=== PATIENT | male | born 1985 | race Caucasian/White ===

== ENCOUNTER 2017-07-30 19:08 | Emergency (ER) | payer OTHER ==
[~2017-07-30] VITALS: Ht 165.1 cm; Wt 136.1 kg
[2017-07-30 19:19] VITALS: BP 140/85
--- NOTE | 2017-07-30 20:07 | PHYS DOC ---
Past History Past Medical History: Hypertension Past Surgical History: No Surgical History Alcohol Use: None Drug Use: None Adult General Chief Complaint Chief Complaint: FOOT INJURY PAIN HPI HPI Patient is a 31 year old M who presents with a toe injury. Robbin states that his feet became tangled in an extension cord just prior to arrival. His right fifth toe was deviated laterally just after the fall. He has mild dull pain that is worse with movement and palpation and improved with positioning and rest. Review of Systems Review of Systems Constitutional: Denies fever or chills [] Eyes: Denies change in visual acuity, redness, or eye pain [] HENT: Denies nasal congestion or sore throat [] Respiratory: Denies cough or shortness of breath [] Cardiovascular: No additional information not addressed in HPI [] GI: Denies abdominal pain, nausea, vomiting, bloody stools or diarrhea [] : Denies dysuria or hematuria [] Musculoskeletal: Negative except history of present illness Integument: Denies rash or skin lesions [] Neurologic: Denies headache, focal weakness or sensory changes [] Endocrine: Denies polyuria or polydipsia [] Family History Family History Noncontributory Current Medications Current Medications Medications reviewed Allergies Allergies Allergies Coded Allergies Type Severity Reaction Last Updated Verified Penicillins Allergy Unknown 07/30/17 Yes Physical Exam Physical Exam Constitutional: Well developed, well nourished, no acute distress, non-toxic appearance. [] HENT: Normocephalic, atraumatic Eyes: PERRLA, EOMI, conjunctiva normal, no discharge. [] Neck: Normal range of motion, no tenderness, supple, no stridor. [] Cardiovascular:Heart rate regular rhythm, no murmur [] Lungs & Thorax: Bilateral breath sounds clear to auscultation [] Abdomen: Bowel sounds normal, soft, no tenderness, no masses, no pulsatile masses. [] Extremities: no cyanosis, no clubbing, ROM intact, no edema. [] Right fifth toe laterally deviated with proximal pain to palpation. Neurologic: Alert and oriented X 3, normal motor function, normal sensory function, no focal deficits noted. [] Psychologic: Affect normal, judgement normal, mood normal. [] Current Patient Data Vital Signs Vital Signs Date Time Temp Pulse Resp B/P (MAP) Pulse Ox O2 Delivery O2 Flow Rate FiO2 07/30/17 19:19 97.6 91 20 99 Room Air Radiology/Procedures Radiology/Procedures Right toe x-ray Impressions: Right fifth toe fracture with mild deviation Course & Med Decision Making Course & Med Decision Making Pertinent Labs and Imaging studies reviewed. (See chart for details) Francisco's toe was mecca taped and he was placed in a hard sole postop shoe. Dragon Disclaimer Dragon Disclaimer This chart was dictated in whole or in part using Voice Recognition software in a busy, high-work load, and often noisy Emergency Department environment. It may contain unintended and wholly unrecognized errors or omissions. Departure Departure: Impression: Primary Impression: Fracture of fifth toe, right, closed Disposition: HOME, SELF-CARE Condition: STABLE Referrals: [facility] (PCP) Patient Instructions: Toe Fracture Additional Instructions: Jim was seen in the emergency department for toe pain. No emergency medical condition was found on history or physical exam. He did have an x-ray which showed a fracture of his right fifth toe. His toes were mecca taped and he was placed in a hard soled shoe, postop shoe. He is advised follow up with podiatry in the next 5-7 days. Problem Qualifiers Primary Impression: Fracture of fifth toe, right, closed Encounter type: initial encounter Qualified Codes: S92.501A - Displaced unspecified fracture of right lesser toe(s), initial encounter for closed fracture JANICE NOGUERA MD Jul 30, 2017 20:07
--- NOTE | 2017-07-31 08:45 | RAD ---
Three-view right foot radiographs to include 3 view radiographs of the right toes. Clinical history: Injury to the right foot and right fourth and fifth toes. AP, lateral and oblique digital radiographs of the right foot were obtained. AP, lateral and oblique digital radiographs of the right toes were obtained. A bone screw is seen within the proximal metaphysis of the right fifth metatarsal extending to the distal diaphysis. A healed fracture of the proximal diaphysis of the right fifth toe is noted. An acute transverse fracture of the proximal metaphysis/diaphysis of the proximal phalanx of the right fifth toe is seen. Very mild medial displacement and lateral angulation of the distal fracture fragment is noted. No additional fracture is seen. Mild degenerative changes are seen involving the interphalangeal joint of the right first toe. Mild to moderate degenerative changes are seen involving the first MTP joint. Mild to moderate degenerative changes are seen involving the right ankle and tarsal joints. Impression: Acute fracture involving the proximal phalanx of the right fifth toe as outlined above.
== END 2017-07-30 20:15 | disposition home or self-care (01) ==
LOC: ER 19:08
DX: S92.511A Displaced fracture of proximal phalanx of right lesser toe(s), initial encounter for closed fracture (principal); I10 Essential (primary) hypertension; Z88.0 Allergy status to penicillin; W19.XXXA Unspecified fall, initial encounter; Y93.89 Activity, other specified; Y99.8 Other external cause status; Y92.89 Other specified places as the place of occurrence of the external cause
CPT/HCPCS: 73630; 73660; 99284

== ENCOUNTER 2019-08-07 12:04 | Emergency (ER) | payer OTHER ==
[~2019-08-07] VITALS: Ht 195.6 cm; Wt 154.2 kg
--- NOTE | 2019-08-07 12:20 | PHYS DOC ---
Past History Past Medical History: Hypertension Past Surgical History: Other Additional Past Surgical Histo: fifth metatarsal surgery Smoking: Non-smoker Alcohol Use: Occasionally Drug Use: None Adult General Chief Complaint Chief Complaint: LACERATION/AVULSION HPI HPI Patient is a 33-year-old male presents complaining of left-sided facial laceration. Patient bent over an L bracket accidentally striking himself in the face. No loss of consciousness. This happened shortly prior to arrival. Patient is uncertain as to when his last tetanus vaccine was administered. Bleeding was controlled with direct pressure. Pain is mild to moderate. No change in vision. No other injuries.[] Review of Systems Review of Systems Constitutional: Denies fever or chills [] Eyes: Denies change in visual acuity, redness, or eye pain [] HENT: Denies nasal congestion or sore throat [] Respiratory: Denies cough or shortness of breath [] Cardiovascular: No Chest pain or palpitations[] GI: Denies abdominal pain, nausea, vomiting, bloody stools or diarrhea [] : Denies dysuria or hematuria [] Musculoskeletal: Denies back pain or joint pain [] Integument: Denies rash, see history of present illness[] Neurologic: Denies headache, focal weakness or sensory changes [] Endocrine: Denies polyuria or polydipsia [] All other systems were reviewed and found to be within normal limits, except as documented in this note. Allergies Allergies Allergies Coded Allergies Type Severity Reaction Last Updated Verified Penicillins Allergy Unknown 07/30/17 Yes Physical Exam Physical Exam Constitutional: Well developed, well nourished, no acute distress, non-toxic appearance. [] HENT: Normocephalic, left facial nearly vertical incision. No active bleeding. No oral laceration., bilateral external ears normal, oropharynx moist, no oral exudates, nose normal. [] Eyes: PERRLA, EOMI, conjunctiva normal, no discharge. [] Neck: Normal range of motion, no tenderness, supple, no stridor. [] Cardiovascular:Heart rate regular rhythm, no murmur [] Lungs & Thorax: Bilateral breath sounds clear to auscultation [] Abdomen: Not examined. [] Skin: Warm, dry, no erythema, no rash. [] Back: No tenderness, no CVA tenderness. [] Extremities: No tenderness, no cyanosis, no clubbing, ROM intact, no edema. [] Neurologic: Alert and oriented X 3, normal motor function, normal sensory function, no focal deficits noted. [] Psychologic: Affect normal, judgement normal, mood normal. [] EKG EKG [] Radiology/Procedures Radiology/Procedures [] Course & Med Decision Making Course & Med Decision Making Pertinent Labs and Imaging studies reviewed. (See chart for details) ED course: Patient arrived, was placed in bed, and tolerated exam well. Wound was repaired as noted in the laceration repair section. Findings and plan were discussed with the patient who voiced understanding. All questions were answered. He was discharged in improved condition. Medical decision making: There is no evidence of retained foreign body. No intraoral laceration or through and through laceration. No uncontrolled bleeding. His tetanus vaccine status was updated.[] Dragon Disclaimer Dragon Disclaimer This electronic medical record was generated, in whole or in part, using a voice recognition dictation system. Departure Departure: Impression: Primary Impression: Laceration of face Disposition: HOME, SELF-CARE Condition: GOOD Referrals: JULIO ROSE MD (PCP) Follow-up in 2 days Patient Instructions: Tissue Adhesive Wound Care Additional Instructions: Follow-up with your regular doctor in 2 days for a wound check. The skin glue should last approximately 5 days. Do not wash the area during this time. Return to the ER if increasing pain, purulent drainage, fever of more than 101, or any other concerns. Laceration Repair Lac Repair Indication: Left facial laceration[] Procedure: The patient was placed in the appropriate position and the area was then cleansed. The laceration was closed utilizing skin glue. Total repaired wound length: 1.5 cm. Other Items: None The patient tolerated the procedure well. Hemostasis was achieved. Complications: None Problem Qualifiers Primary Impression: Laceration of face Encounter type: initial encounter Qualified Codes: S01.81XA - Laceration without foreign body of other part of head, initial encounter BENNYANY DILLARD Aug 07, 2019 12:20
[2019-08-07] MEDS ORDERED: DIPHTH,PERTUSS(ACELL),TET TOX 0.5 ML DISP.SYRIN. VAX IM ONE ×2 (12:26→12:50)
[2019-08-07 12:30] VITALS: BP 133/99
== END 2019-08-07 12:30 | disposition home or self-care (01) ==
LOC: ER 12:04
DX: S01.81XA Laceration without foreign body of other part of head, initial encounter (principal); I10 Essential (primary) hypertension; Z88.0 Allergy status to penicillin; W22.8XXA Striking against or struck by other objects, initial encounter; Y93.89 Activity, other specified; Y92.89 Other specified places as the place of occurrence of the external cause; Y99.8 Other external cause status
CPT/HCPCS: 12011; 90471; 90715; 99283-25